=== PATIENT | male | born 1985 | race Hispanic/Latino ===

== ENCOUNTER 2018-09-22 16:29 | Emergency (ER) | payer OTHER ==
--- NOTE | 2018-09-22 17:23 | RAD ---
3 views left foot. HISTORY: Cheat rock fell on foot. AP, lateral and oblique views left foot obtained. Nondisplaced fractures seen in the distal shaft of the third left metatarsal and midshaft of the seco nd left metatarsal. No other abnormality seen. IMPRESSION: Mid second metatarsal and distal third left metatarsal fractures.
[2018-09-22] MEDS ORDERED: HYDROcodone/Acetaminophen 10/325 mg Tablet ONE (17:37)
[2018-09-22] MEDS ORDERED: Ketorolac Tromethamine 30 MG/ML VIAL ONE (17:37)
== END 2018-09-22 17:48 | disposition home or self-care (01) ==
LOC: ERS 16:29
DX: S92.335A Nondisplaced fracture of third metatarsal bone, left foot, initial encounter for closed fracture (principal); S92.325A Nondisplaced fracture of second metatarsal bone, left foot, initial encounter for closed fracture; W20.8XXA Other cause of strike by thrown, projected or falling object, initial encounter
CPT/HCPCS: 96372; J1885